=== PATIENT | male | born 1970 | race Caucasian/White ===

== ENCOUNTER 2020-07-31 17:20 | Observation (INO) | payer OTHER ==
[2020-07-31 18:24] LABS: Absolute Lymphocytes (CBC) 2.5 K/uL (0.7-4.9); Basophils % 0.9 % (0-1.3); Hematocrit 50.3 % (39.6-49.0); Lymphocytes % 26.3 % (15.3-44.8); MPV 8.7 fL (7.6-11.3); RBC Red Blood Cell Count 5.76 M/uL (4.33-5.43)
[2020-07-31 18:25] LABS: Protime INR 0.97
[2020-07-31 18:50] LABS: ALT/SGPT 80 U/L (12-78); Albumin 3.7 g/dL (3.4-5.0); Alkaline Phosphatase 78 U/L (45-117); BUN Blood Urea Nitrogen 17 mg/dL (7-18); Bicarbonate 27 mmol/L (21-32); Bilirubin Direct < 0.1 mg/dL (0-0.2); Bilirubin Total 0.4 mg/dL (0.2-1.0); Glucose Level 284 mg/dL (74-106); NT PRO-BNP 12 pg/mL (<125); Potassium 4.2 mmol/L (3.5-5.1); Protein, Total 7.6 g/dL (6.4-8.2); Sodium Level 140 mmol/L (136-145); Troponin (Emerg Dept Use Only) < 0.02 ng/mL (0.0-0.045)
[2020-07-31 18:51] LABS: AST/SGOT 33 U/L (15-37)
--- NOTE | 2020-07-31 19:05 | RAD REPORT ---
EXAM DESCRIPTION: RAD - Chest Single View - 07/31/2020 6:37 pm CLINICAL HISTORY: CHEST PAIN Chest pain. COMPARISON: No comparisons FINDINGS: Portable technique limits examination quality. The lungs are grossly clear. The heart is normal in size. No displaced fractures. IMPRESSION: No acute intrathoracic process suspected.
--- NOTE | 2020-07-31 20:43 | ER ---
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 Pt reports nausea and SOB, denies cough, denies vomiting. Pt reports he is diabetic and he ate 9 donuts today. 17:39 Coronavirus screen: Client denies travel out of the [place] in the last 14 days. At this aa5 time, the client does not indicate any symptoms associated with coronavirus-19. Ebola Screen: Patient negative for fever greater than or equal to 101.5 degrees Fahrenheit, and additional compatible Ebola Virus Disease symptoms. Initial Sepsis Screen: Does the patient meet any 2 criteria? No. Patient's initial sepsis screen is negative. Does the patient have a suspected source of infection? No. Patient's initial sepsis screen is negative. Risk Assessment: Do you want to hurt yourself or someone else? Patient reports no desire to harm self or others. Onset of symptoms was July 31, 2020. 17:39 Acuity: DARCI 2 aa5 17:39 Method Of Arrival: Wheelchair aa5 Historical: - Allergies: 17:39 No Known Allergies; aa5 - PMHx: 17:39 Diabetes - NIDDM; aa5 - Immunization history:: Adult Immunizations up to date. - Social history:: Smoking status: Patient denies any tobacco usage or history of. Screenin:13 Abuse screen: Denies threats or abuse. Nutritional screening: No deficits noted. ll1 Tuberculosis screening: No symptoms or risk factors identified. Fall Risk IV access (20 points). Total Mason Fall Scale indicates No Risk (0-24 pts). Assessment: 17:50 General: Appears in no apparent distress. Behavior is calm, cooperative. Pain: ll1 Complains of pain in chest Pain does not radiate. Pain began 2 hours ago. Neuro: No deficits noted. Cardiovascular: Reports chest pain, shortness of breath, Heart tones S1 S2 Capillary refill < 3 seconds Clubbing of nail beds is absent Patient's skin is warm and dry. Respiratory: Reports shortness of breath Airway is patent Trachea midline Respiratory effort is even, unlabored, Respiratory pattern is regular, symmetrical, Breath sounds are clear bilaterally. Onset: The symptoms/episode began/occurred suddenly, the patient has mild shortness of breath. GI: No deficits noted. 19:10 Reassessment: Patient appears in no apparent distress at this time. No changes from previously documented assessment. Patient and/or family updated on plan of care and expected duration. Pain level reassessed. Patient is alert, oriented x 3, equal unlabored respirations, skin warm/dry/pink. 20:30 Reassessment: Patient appears in no apparent distress at this time. Patient and/or family updated on plan of care and expected duration. Pain level reassessed. Patient is alert, oriented x 3, equal unlabored respirations, skin warm/dry/pink. 21:00 Reassessment: MD at bedside explaining POC need for admit. 22:00 Reassessment: Hospitalist at bedside explaining POC need for admit. Vital Signs: 17:39 BP 133 / 90; Pulse 85; Resp 18 S; Temp 98.8(O); Pulse Ox 99% on R/A; aa5 18:01 jp3 18:14 BP 142 / 91; Pulse 88; Resp 18; Pulse Ox 95% on R/A; ll1 18:55 BP 132 / 88; Pulse 81; Resp 17; Pulse Ox 98% on R/A; ll1 19:00 BP 121 / 84; Pulse 78; Resp 18; Pulse Ox 96% on R/A; 20:30 BP 132 / 85; Pulse 78; Resp 18; Pulse Ox 96% on R/A; 22:00 BP 121 / 75; Pulse 70; Resp 18; Pulse Ox 96% on R/A; wh 18:01 POC Glucose: 264mg/dL 3 ED Course: 17:20 Patient arrived in ED. ag5 17:30 EKG done, by ED staff, reviewed by Gerardo Whiting MD. jp3 17:39 Arm band placed on. aa5 17:43 Gerrado Whiting MD is Attending Physician. kdr 17:49 Triage completed. aa5 17:55 Initial lab(s) drawn, by fl, sent to lab. Inserted saline lock: 20 gauge in right jp3 antecubital area, using aseptic technique. Blood collected. 17:55 Patient maintains SpO2 saturation greater than 95% on room air. jp3 18:08 Caitlyn Reid, RN is Primary Nurse. ll1 18:13 Patient has correct armband on for positive identification. Bed in low position. Call ll1 light in reach. Side rails up X 1. school lunch monitor on. Pulse ox on. NIBP on. 18:37 XRAY Chest (1 view) In Process Unspecified. EDMS 19:02 Attending Physician role handed off by Gerardo Whiting MD [facility] 19:02 George Allen MD is Attending Physician. [facility] 20:42 Wei Alvarado DO is Hospitalizing Provider. [facility] 22:28 No provider procedures requiring assistance completed. Patient admitted, IV remains in place. Administered Medications: 21:25 Drug: Atorvastatin 40 mg Route: PO; ca1 22:28 Follow up: Response: No adverse reaction 21:28 Drug: Nitroglycerin 0.4 mg Route: Sublingual; [facility] 22:28 Follow up: Response: No adverse reaction 21:31 Not Given (Physician Discretion; Notified YELENA Marvin. Pt states, "I took 4 BB aspirin ca1 today"): Aspirin 162 mg PO once Outcome: 20:43 Decision to Hospitalize by Provider. [facility] 22:30 Admitted to Med/surg accompanied by tech, family with patient, via wheelchair, room wh 230, with chart, Report called to Cale OSCAR 22:30 Condition: stable 22:30 Instructed on the need for admit. 22:38 Patient left the ED. Signatures: Dispatcher [employer] EDMD Gerardo Whiting MD MD kdr Calderon, Audri, RN RN aa5 Justino Donnelly Deacon Castillo jp3 Matilda Iqbal RN RN ca1 Leann Caballero 5 Caitlyn Reid, RN RN ll1 George Allen MD MD [facility] Corrections: (The following items were deleted from the chart) 22:32 22:30 Admitted to Med/surg accompanied by tech, family with patient, via wheelchair, room 212, with chart, Report called to Cale OSCAR
--- NOTE | 2020-07-31 20:44 | EDPHYS ---
Physician Documentation [facility] Name: Donald Romero Age: 50 yrs Sex: Male : 1970 Arrival Date: 07/31/2020 Time: 17:20 Bed 18 Private MD: ED Physician George Allen HPI: 07/31 18:38 This 50 yrs old Male presents to ER via Wheelchair with complaints of Chest kdr Pain. 18:38 The patient or guardian reports chest pain that is located primarily in the anterior kdr chest wall, left. Onset: suddenly, 2 hour(s) ago. The pain radiates to left neck, left jaw. Associated signs and symptoms: Pertinent positives: nausea, Pertinent negatives: abdominal pain, cough, diaphoresis, dizziness, headache, lower extremity pain, lower extremity swelling, lightheadedness, near syncope, palpitations, recent travel, shortness of breath, syncope, vomiting. The chest pain is described as aching, a pressure, sharp, stabbing. Duration: The patient or guardian reports a single episode, that is still ongoing, The patient or guardian reports multiple episodes, that are intermittent, that wax and wane, with no pattern. Modifying factors: The symptoms are alleviated by nothing. the symptoms are aggravated by activity, twisting torso. Severity of pain: At its worst the pain was moderate today, in the emergency department the pain has improved mildly. The patient has not experienced similar symptoms in the past. Historical: - Allergies: 17:39 No Known Allergies; aa5 - PMHx: 17:39 Diabetes - NIDDM; aa5 - Immunization history:: Adult Immunizations up to date. - Social history:: Smoking status: Patient denies any tobacco usage or history of. ROS: 18:38 Constitutional: Negative for fever, chills, and weight loss, Eyes: Negative for injury, kdr pain, redness, and discharge, ENT: Negative for injury, pain, and discharge, Neck: Negative for injury, pain, and swelling, Respiratory: Negative for shortness of breath, cough, wheezing, and pleuritic chest pain, Abdomen/GI: Negative for abdominal pain, nausea, vomiting, diarrhea, and constipation, Back: Negative for injury and pain, : Negative for injury, bleeding, discharge, and swelling, MS/Extremity: Negative for injury and deformity, Skin: Negative for injury, rash, and discoloration, Neuro: Negative for headache, weakness, numbness, tingling, and seizure activity. Psych: Negative for depression, anxiety, suicide ideation, homicidal ideation, and hallucinations, Allergy/Immunology: Negative for hives, rash, and allergies, Endocrine: Negative for neck swelling, polydipsia, polyuria, polyphagia, and marked weight changes, Hematologic/Lymphatic: Negative for swollen nodes, abnormal bleeding, and unusual bruising. 18:38 Cardiovascular: Positive for chest pain, Negative for edema, orthopnea, palpitations, paroxysmal nocturnal dyspnea. Exam: 18:38 Constitutional: This is a well developed, well nourished patient who is awake, alert, kdr and in no acute distress. Head/Face: Normocephalic, atraumatic. Eyes: Pupils equal round and reactive to light, extra-ocular motions intact. Lids and lashes normal. Conjunctiva and sclera are non-icteric and not injected. Cornea within normal limits. Periorbital areas with no swelling, redness, or edema. Neck: Trachea midline, no thyromegaly or masses palpated, and no cervical lymphadenopathy. Supple, full range of motion without nuchal rigidity, or vertebral point tenderness. No Meningismus. Chest/axilla: Normal chest wall appearance and motion. Nontender with no deformity. No lesions are appreciated. Cardiovascular: Regular rate and rhythm with a normal S1 and S2. No gallops, murmurs, or rubs. Normal PMI, no JVD. No pulse deficits. Respiratory: Lungs have equal breath sounds bilaterally, clear to auscultation and percussion. No rales, rhonchi or wheezes noted. No increased work of breathing, no retractions or nasal flaring. Abdomen/GI: Soft, non-tender, with normal bowel sounds. No distension or tympany. No guarding or rebound. No evidence of tenderness throughout. Back: No spinal tenderness. No costovertebral tenderness. Full range of motion. Skin: Warm, dry with normal turgor. Normal color with no rashes, no lesions, and no evidence of cellulitis. MS/ Extremity: Pulses equal, no cyanosis. Neurovascular intact. Full, normal range of motion. Neuro: Awake and alert, GCS 15, oriented to person, place, time, and situation. Cranial nerves II-XII grossly intact. Motor strength 5/5 in all extremities. Sensory grossly intact. Cerebellar exam normal. Normal gait. Psych: Awake, alert, with orientation to person, place and time. Behavior, mood, and affect are within normal limits. 18:44 ECG was reviewed by the Attending Physician. kdr Vital Signs: 17:39 BP 133 / 90; Pulse 85; Resp 18 S; Temp 98.8(O); Pulse Ox 99% on R/A; aa5 18:01 jp3 18:14 BP 142 / 91; Pulse 88; Resp 18; Pulse Ox 95% on R/A; ll1 18:55 BP 132 / 88; Pulse 81; Resp 17; Pulse Ox 98% on R/A; ll1 19:00 BP 121 / 84; Pulse 78; Resp 18; Pulse Ox 96% on R/A; wh 20:30 BP 132 / 85; Pulse 78; Resp 18; Pulse Ox 96% on R/A; wh 22:00 BP 121 / 75; Pulse 70; Resp 18; Pulse Ox 96% on R/A; wh 18:01 POC Glucose: 264mg/dL 3 MDM: 18:38 Data reviewed: vital signs, nurses notes, lab test result(s), EKG, radiologic studies. kdr 20:40 Differential diagnosis: acute myocardial infarction, anxiety, coronary artery disease [facility] chest wall pain, congestive heart failure costochondritis, myocarditis, pericarditis. HEART Score: History: Highly Suspicious (2), ECG: Normal (0), Age: > 45 and < 65 years (1), Risk Factors: 1 or 2 risk factors (1), [DM] Troponin: < or = 1 x Normal Limit (0), Total Score = 4. Data interpreted: Pulse oximetry: on room air is 98 %. Interpretation: normal. Response to treatment: the patient's symptoms have markedly improved after treatment. 20:40 Counseling: I had a detailed discussion with the patient and/or guardian regarding: the [facility] historical points, exam findings, and any diagnostic results supporting the discharge/admit diagnosis, lab results, radiology results, the need for further work-up and treatment in the hospital. 20:43 Patient medically screened. [facility] 07/31 17:43 Order name: Basic Metabolic Panel; Complete Time: 19:31 kdr 07/31 17:43 Order name: CBC with Diff; Complete Time: 18:37 kdr 07/31 17:43 Order name: LFT's; Complete Time: 19:31 kdr 07/31 17:43 Order name: Magnesium; Complete Time: 19:31 kdr 07/31 17:43 Order name: NT PRO-BNP; Complete Time: 19:31 kdr 07/31 17:43 Order name: PT-INR; Complete Time: 18:37 kdr 07/31 17:43 Order name: Troponin (emerg Dept Use Only); Complete Time: 19:31 kdr 07/31 17:43 Order name: XRAY Chest (1 view); Complete Time: 19:31 kdr 07/31 18:12 Order name: Glucose, Ancillary Testing; Complete Time: 18:37 EDMS 07/31 22:31 Order name: SARS-COV-2 RT PCR EDME 07/31 17:43 Order name: EKG; Complete Time: 17:44 kdr 07/31 17:43 Order name: Cardiac monitoring; Complete Time: 17:47 kdr 07/31 17:43 Order name: EKG - Nurse/Tech; Complete Time: 17:47 kdr 07/31 17:43 Order name: IV Saline Lock; Complete Time: 18:33 kdr 07/31 17:43 Order name: Labs collected and sent; Complete Time: 18:34 kdr 07/31 17:43 Order name: O2 Per Protocol; Complete Time: 17:47 kdr 07/31 17:43 Order name: O2 Sat Monitoring; Complete Time: 17:47 kdr EC:44 Rate is 93 beats/min. Rhythm is regular, Normal Sinus Rhythm with No ectopy. QRS Webster kdr is Normal. PA interval is normal. QRS interval is normal. QT interval is normal. Clinical impression: Normal ECG and NSR w/ Non-specific ST/T Changes. Administered Medications: 21:25 Drug: Atorvastatin 40 mg Route: PO; ca1 22:28 Follow up: Response: No adverse reaction 21:28 Drug: Nitroglycerin 0.4 mg Route: Sublingual; ca1 22:28 Follow up: Response: No adverse reaction 21:31 Not Given (Physician Discretion; Notified YELENA Marvin. Pt states, "I took 4 BB aspirin ca1 today"): Aspirin 162 mg PO once Disposition: 07/31/20 20:43 Hospitalization ordered by Wei Alvarado for Observation. Preliminary diagnosis is Chest pain, unspecified. - Bed requested for Telemetry/MedSurg (observation). - Status is Observation. - Condition is Stable. - Problem is new. - Symptoms have improved. Signatures: Dispatcher [employer] EDME Gerardo Whiting MD MD kdr Karo Morrow, RN RN aa5 Yon Houston, PROPOSAL DEVELOPMENT MANAGER-C PROPOSAL DEVELOPMENT MANAGER-Cla1 Laurel Chaudhary, RN RN tl1 Justino Donnelly Matilda Iqbal RN RN ca1 Caitlyn Reid RN RN ll1 George Allen MD MD Robert Corrections: (The following items were deleted from the chart) 20:42 18:38 Counseling: I had a detailed discussion with the patient and/or guardian [facility] regarding: the historical points, exam findings, and any diagnostic results supporting the discharge/admit diagnosis, lab results, radiology results, the need for outpatient follow up, kdr 21:32 21:19 CORONAVIRUS+MR.LAB.BRZ ordered. [facility] 22:08 20:43 Hospitalization Ordered by Wei Alvarado DO for Observation. Preliminary tl1 diagnosis is Chest pain, unspecified. Bed requested for Telemetry/MedSurg (observation). Status is Observation. Condition is Stable. Problem is new. Symptoms have improved. [facility] 22:38 22:08 07/31/2020 20:43 Hospitalization Ordered by Wei Alvarado DO for Observation. Preliminary diagnosis is Chest pain, unspecified. Bed requested for Telemetry/MedSurg (observation). Status is Observation. Condition is Stable. Problem is new. Symptoms have improved. tl1
[2020-07-31] MEDS ORDERED: ASPIRIN EC 81 MG TAB PO ONE (21:40)
[2020-07-31] MEDS ORDERED: ATORVASTATIN 20 MG TAB ONE (21:40)
[2020-07-31] MEDS ORDERED: NITROGLYCERIN 0.4 MG/TAB SL ONE (21:40)
--- NOTE | 2020-07-31 21:45 | P.HP ---
Certification for Inpatient Patient admitted to: Observation With expected LOS: <2 Midnights Patient will require the following post-hospital care: None Practitioner: I am a practitioner with admitting privileges, knowledge of patient current condition, hospital course, and medical plan of care. Services: Services provided to patient in accordance with Admission requirements found in Title 42 Section 412.3 of the Code of Federal Regulations Patient History Date of Service: 07/31/20 Reason for admission: Chest pain History of Present Illness: 50-year-old male with history of diabetes mellitus type 2 and obstructive sleep apnea presented to the emergency department for chest pain. Patient reports that his chest pain woke him from sleep, described as both sharp and pressure-like. Patient states pain is nonradiating, associated with some mild shortness of breath. Reports that over the course of the last few months he has had a couple similar episodes. 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 Has never had cardiac catheterization. Initial troponin negative, EKG without acute changes, x-ray unremarkable. ED provider wishes to admit patient for chest pain rule out. When I saw the patient in the ER he was awake, alert, oriented x3. Patient took aspirin prior to arrival, will provide with atorvastatin in trial nitro. Will admit for further evaluation and management. - Past Medical/Surgical History -: Diabetes mellitus type 2 -: Obstructive sleep apnea -: none Psychosocial/ Personal History: Lives with his - Family History Mother -: Stroke Father -: Diabetes - Social History Smoking Status: Never smoker Alcohol use: Yes CD- Drugs: No Caffeine use: Yes Place of Residence: Home Review of Systems 10-point ROS is otherwise unremarkable Respiratory: Shortness of Breath Cardiovascular: Chest Pain Physical Examination - Physical Exam General: Alert, In no apparent distress HEENT: Atraumatic, PERRLA, Mucous membr. moist/pink Neck: Supple, 2+ carotid pulse no bruit, No LAD Respiratory: Clear to auscultation bilaterally, Normal air movement Cardiovascular: Regular rate/rhythm, Normal S1 S2 Gastrointestinal: Normal bowel sounds, No tenderness Musculoskeletal: No tenderness Integumentary: No rashes, No significant lesion, No tenderness/swelling, No erythema Neurological: Normal speech, Normal strength at 5/5 x4 extr, Normal tone - Studies Laboratory Data (last 24 hrs) 07/31/20 17:55: PT 11.4, INR 0.97 07/31/20 17:55: WBC 9.7, Hgb 17.1, Hct 50.3 H, Plt Count 247 07/31/20 17:55: Sodium 140, Potassium 4.2, BUN 17, Creatinine 1.30, Glucose 284 H, Magnesium 2.0, Total Bilirubin 0.4, AST 33, ALT 80 H, Alkaline Phosphatase 78 Assessment and Plan - Plan Assessment Chest pain rule out ACS Diabetes mellitus type 2 AVNI Plan Chest pain rule out ACS: Trend troponins, monitor on telemetry. Aspirin, statin, beta-franck therapy administered. Cardiology consult in place. NPO after midnight. Diabetes mellitus type 2: A.c. HS Accu-Cheks, sliding scale insulin therapy. A1c with morning labs. AVNI: Provide patient with CPAP. Discharge Plan: Home Plan to discharge in: 24 Hours - Advance Directives Does patient have a Living Will: No Does patient have a Durable POA for Healthcare: No - Code Status/Comfort Care Code Status Assessed: Yes (Full code) Critical Care: No Time Spent Managing Pts Care (In Minutes): 55
[2020-07-31] MEDS ORDERED: MORPHINE 2 MG/ML SYR IV PRN (22:56)
[2020-07-31] MEDS ORDERED: ACETAMINOPHEN 500 MG TAB PO PRN (22:56)
[2020-07-31] MEDS ORDERED: NITROGLYCERIN 0.4 MG/TAB SL PRN (22:56)
[2020-07-31] MEDS ORDERED: ONDANSETRON 4 MG/2 ML VIAL IV PRN (22:56)
[2020-07-31 22:59] VITALS: BMI 34.7
[2020-08-01] MEDS ORDERED: METOPROLOL TAR 25 MG TAB PO SCH (06:00)
[2020-08-01] MEDS: INSULIN -REGULAR HUMAN 50 UNIT/0.5 ML ML SQ SCH ×2 (07:30→12:39)
[2020-08-01 07:39] LABS: ALT/SGPT 74 U/L (12-78); AST/SGOT 25 U/L (15-37); Albumin 3.5 g/dL (3.4-5.0); Alkaline Phosphatase 73 U/L (45-117); BUN Blood Urea Nitrogen 15 mg/dL (7-18); Bicarbonate 31 mmol/L (21-32); Bilirubin Total 0.5 mg/dL (0.2-1.0); Glucose Level 159 mg/dL (74-106); HDL Cholesterol 44 mg/dL (40-60); LDL Cholesterol, Calculated 90 (<130); Magnesium 2.1 mg/dL (1.8-2.4); Potassium 4.4 mmol/L (3.5-5.1); Protein, Total 7.2 g/dL (6.4-8.2); Sodium Level 141 mmol/L (136-145); Thyroid Stimulating Hormone 0.817 uIU/mL (0.360-3.740); Troponin I < 0.02 ng/mL (0.0-0.045)
[2020-08-01] MEDS ORDERED: ENOXAPARIN 40 MG/0.4 ML SQ SCH (09:00)
[2020-08-01] MEDS ORDERED: ASPIRIN EC 81 MG TAB PO SCH (09:00)
[2020-08-01 13:09] VITALS: O2SAT 95
[2020-08-01 14:16] VITALS: BP 144/81; TEMP 98.7
--- NOTE | 2020-08-01 14:53 | P.DS ---
Admission Date: 07/31/20 Discharge Date: 08/01/20 Disposition: ROUTINE DISCHARGE Discharge Condition: GOOD Reason for Admission: Chest pain Consultations: Cardiology - Dr. Lockwood Procedures: CXR (07/31): No acute intrathoracic process suspected. Problem List: Chest Pain r/o ACS DM2 AVNI Brief History of Present Illness: 50 yo M, PMH: DM2, AVNI, presented to ED with chest pain that woke him from sleep. Described as both sharp and pressure-like, non-radiation, and associated with mild SOB. Reports that over the course of the last few months he has had a couple similar episodes. Patient had stress test approximately 2 years ago with his telemetry tech and was negative. Has never had cardiac catheterization. Initial troponin negative, EKG without acute changes, x-ray unremarkable. Patient was brought in for chest pain rule out. Hospital Course: No events were noted on telemetry. Troponin remained negative x3. Cardiology was consulted. ACS was ruled out, and it was felt the patient was stable for discharge home. He will f/u with cardiology for an outpatient stress test. Vital Signs/Physical Exam: Temp Pulse Resp BP Pulse Ox 98.7 F 91 H 20 144/81 H 95 08/01/20 12:00 08/01/20 12:00 08/01/20 12:00 08/01/20 12:00 08/01/20 12:00 General: Alert, In no apparent distress HEENT: Sclerae nonicteric Respiratory: Clear to auscultation bilaterally, Normal air movement Cardiovascular: No edema, Regular rate/rhythm, No murmurs Gastrointestinal: Soft and benign, Non-distended, No tenderness Musculoskeletal: No tenderness Integumentary: No rashes, No significant lesion Neurological: Normal speech, Normal affect Laboratory Data at Discharge: WBC 9.7 K/uL (4.3-10.9) 07/31/20 17:55 Hgb 17.1 g/dL (13.6-17.9) 07/31/20 17:55 Hct 50.3 % (39.6-49.0) H 07/31/20 17:55 Plt Count 247 K/uL (152-406) 07/31/20 17:55 PT 11.4 SECONDS (9.5-12.5) 07/31/20 17:55 INR 0.97 07/31/20 17:55 Sodium 141 mmol/L (136-145) 08/01/20 06:20 Potassium 4.4 mmol/L (3.5-5.1) 08/01/20 06:20 BUN 15 mg/dL (7-18) 08/01/20 06:20 Creatinine 1.18 mg/dL (0.55-1.3) 08/01/20 06:20 Glucose 159 mg/dL (74-106) H 08/01/20 06:20 Magnesium 2.1 mg/dL (1.8-2.4) 08/01/20 06:20 Total Bilirubin 0.5 mg/dL (0.2-1.0) 08/01/20 06:20 AST 25 U/L (15-37) 08/01/20 06:20 ALT 74 U/L (12-78) 08/01/20 06:20 Alkaline Phosphatase 73 U/L (45-117) 08/01/20 06:20 Troponin I Cancelled 08/01/20 11:40 Triglycerides 108 mg/dL (<150) 08/01/20 06:20 Cholesterol 156 mg/dL (<200) 08/01/20 06:20 HDL Cholesterol 44 mg/dL (40-60) 08/01/20 06:20 Cholesterol/HDL Ratio 3.55 08/01/20 06:20 Home Medications: Ascorbic Acid [Vitamin C*] 1,000 mg PO BID 08/01/20 Aspirin [Aspirin EC 81 MG] 162 mg PO DAILY 08/01/20 Bacillus Coagulans [Probiotic] 1 tab PO BID 08/01/20 Cholecalciferol (Vitamin D3) [Vitamin D3] 2,000 units PO DAILY 08/01/20 Etodolac [Lodine Xl] 500 mg PO BID 08/01/20 Fexofenadine HCl [Cyndy Allergy] 180 mg PO DAILYPRN PRN 08/01/20 Metformin HCl [Glucophage] 1,000 mg PO BID 08/01/20 Multivitamin 1 tab PO DAILY 08/01/20 Phentermine HCl [Adipex-P] 1 tab PO DAILY 08/01/20 Ubidecarenone/Vit E/Vit E Mix [Co-Enzyme Q10 100 mg Softgel] 1 tab PO DAILY 08/01/20 Patient Discharge Instructions: Please follow up with Cardiology (Dr. Lockwood) for a stress test. Continue home medications as prescribed. No changes at this time. Your EKG and cardiace enzymes were normal. Follow up with PCP as needed / previously scheduled. Diet: AHA Activity: Ad octavio Followup: Jordy Lockwood MD [ACTIVE - CAN ADMIT] - Unknown,U [Primary Care Provider] - Time spent managing pt's care (in minutes): 35
--- NOTE | 2020-08-01 18:45 | CON ---
Date of Consultation: 08/01/2020 Reason For Consultation: Chest pain. History Of Present Illness: 50-year-old male, history of type 2 diabetes, obstructive sleep apnea; p resented with chest pain, stabbing like, woke him up from a sleep. Patient is otherwise active. He was cleaning his pool and he mows his yard without any chest pain, climb stairs without chest pain. Stress test years ago was negative. He denies having exertional chest pain or shortness of breath. No nausea, vomiting, or diaphoresis. Past Medical History: As outlined above in the HPI. Medications: Refer to reconciliation sheet for detailed list. Allergies: NO KNOWN DRUG ALLERGIES. Family History: No premature coronary artery disease or cancer. Social History: Does not smoke or drink. Does not use any drugs. Review of Systems: All systems reviewed and they were negative except for what is mentioned in the HPI. Physical Examination: Vital Signs: Temperature is 97.2, pulse 77, breathing 18, blood pressure 118/80, saturating 96%. General: Pleasant middle-aged male, in no apparent distress. Head and Neck: Pupils are equal, react to light. Intact eye movements. No JVD. No cervical lympha denopathy. Neck supple. Thyroid is not enlarged. Lungs: Clear to auscultation bilaterally. No rhonchi, wheezing, or crackles. No accessory muscle u se. Heart: Regular rate and rhythm. No extra sounds. Abdomen: Soft, nontender. Bowel sounds positive. No organomegaly. No masses or hernia. No rigidi ty or rebound. Extremities: No edema, clubbing, cyanosis. Intact pulses. SKIN: No rashes. Neurologic: Alert, awake, oriented x3. No acute focal deficit appreciated. Investigations: Troponins x3 are negative. Creatinine 1.1. LDL is 90, HDL is 44. White blood cell count is 9.7, hemoglobin 17.1. Assessment And Plan: 1.Chest pain, this is atypical chest pain. Cardiac enzymes are negative. Patient is pain free. Ok ay to discharge from Cardiology standpoint with arrangement for outpatient exercise stress test as we ll as an echo. Report further episodes of chest pain to the emergency room. 2.Diabetes. Follow up with primary care physician in this manner and will plan to see the patient i n outpatient arena after stress test and echo are done. SR/MODL Voice ID: [id number] Report ID: [id number]
[2020-08-01] MEDS ORDERED: ATORVASTATIN 40 MG TAB PO SCH (21:00)
== END 2020-08-01 15:52 | disposition home or self-care (01) ==
LOC: ER 17:20 → ERHOLD 21:36 → 2ND 22:34
PROVIDERS: ADMIT Family Medicine; ATTEND Hospitalist
DX: R07.9 Chest pain, unspecified (principal); E11.9 Type 2 diabetes mellitus without complications; G47.33 Obstructive sleep apnea (adult) (pediatric); Z20.828 Contact with and (suspected) exposure to other viral communicable diseases
CPT/HCPCS: 93005; 85025; 80048; 36415; 83735 ×2; 85610; 80061; 82947 ×3; 80076; 84443; 83036; 84484 ×3; 84439; 80053; 83880; 71045; 94660; 99285; U0003; J1650